=== PATIENT | male | born 1990 | race Caucasian/White ===

== ENCOUNTER 2019-05-02 09:06 | Emergency (ER) | payer SELFPAY ==
[~2019-05-02] VITALS: Ht 163.8 cm; Wt 77.7 kg
[~2019-05-02 09:06] MED LIST: IBUP-974 PO
[2019-05-02 09:15] VITALS: BP 128/82
[2019-05-02] MEDS ORDERED: ACETAMINOPHEN EXTRA STRENGTH 500 MG TAB PO ONE (09:20)
--- NOTE | 2019-05-02 09:27 | NUR ---
29 Y/O M C/C FEVER/BODYACHES X3 DAYS. PER FAMILY GIVEN IBUPROFEN WITH NO RELIEF. PT PAIN ON WAIST 11/24. FLU SHOT NOT TAKEN/NO FAMILY SICK AT HOME. PT NAUSEUS X1 DAY. NO V/D. ALLERGIES PNC. NO HX. NO RX. SIDE RAIL X1.
--- NOTE | 2019-05-02 09:31 | NUR ---
FLU SWAP COLLECTED
--- NOTE | 2019-05-02 10:17 | NUR ---
PT RESTING IN BED, SIDE RAIL X1
--- NOTE | 2019-05-02 10:17 | NUR ---
ERMD AT BEDSIDE
[2019-05-02 10:35] VITALS: BP 128/82
--- NOTE | 2019-05-02 10:35 | NUR ---
Patient discharged with v/s stable. Written and verbal after care instructions given and explained. Patient alert, oriented and verbalized understanding of instructions. Ambulatory with steady gait. All questions addressed prior to discharge. ID band removed. Patient advised to follow up with PMD. Rx of TAMIFLU,PROMETHAZINE,MOTRIN given. Patient educated on indication of medication including possible reaction and side effects. Opportunity to ask questions provided and answered.
== END 2019-05-02 10:35 | disposition home or self-care (01) ==
LOC: MED 09:06
DX: J10.1 Influenza due to other identified influenza virus with other respiratory manifestations (principal); Z88.0 Allergy status to penicillin
CPT/HCPCS: 87804; 99283

== ENCOUNTER 2021-07-22 10:17 | Emergency (ER) | payer SELFPAY ==
[~2021-07-22] VITALS: Ht 162.6 cm; Wt 87.5 kg
[2021-07-22 10:28] VITALS: BP 119/80
--- NOTE | 2021-07-22 10:33 | NUR ---
PT AMBULATED TO BED 11 WITH STEADY GAIT
--- NOTE | 2021-07-22 10:38 | NUR ---
PT AMBULATED TO BATHROOM WITH STEADY GAIT
--- NOTE | 2021-07-22 10:46 | NUR ---
31 Y/O MALE C/O STABBING CHEST PAIN 5/10 RADIATING TO THE RIGHT FLANK YESTERDAY AND SOB, DENIES N/V/D, FEVER OR CHILLS. RESPIRATIONS EVEN AND UNLABORED, DENIES ANY MEDICATION FOR PAIN PMH: DENIES ALLERGY: PENICILLIN
--- NOTE | 2021-07-22 11:06 | NUR ---
DR DUPONT AT BEDSIDE FOR EVAL
[2021-07-22] MEDS ORDERED: BPM/118S31 PO (11:23)
--- NOTE | 2021-07-22 11:26 | NUR ---
PT TAKEN TO XRAY VIA WC
--- NOTE | 2021-07-22 11:32 | NUR ---
PT BACK FROM XRAY
[2021-07-22 12:10] VITALS: BP 111/66
--- NOTE | 2021-07-22 12:11 | NUR ---
Patient discharged with v/s stable. Written and verbal after care instructions ABOUT CHEST WALL PAIN given and explained. Patient alert, oriented and verbalized understanding of instructions. Ambulatory with steady gait. All questions addressed prior to discharge. ID band removed. Patient advised to follow up with PMD. Rx of BROMFED DM COUGH SYRUP given. Patient educated on indication of medication including possible reaction and side effects. Opportunity to ask questions provided and answered.
== END 2021-07-22 12:11 | disposition home or self-care (01) ==
LOC: MED 10:17
DX: R07.89 Other chest pain (principal); R05.9 Cough, unspecified; Z88.0 Allergy status to penicillin; Z79.899 Other long term (current) drug therapy
CPT/HCPCS: 71046; 81002; 99283